=== PATIENT | male | born 1965 | race Caucasian/White ===

== ENCOUNTER 2020-09-06 19:58 | Emergency (ER) | payer SELFPAY ==
[~2020-09-06] VITALS: Ht 154.9 cm; Wt 83.9 kg
[2020-09-06 20:10] VITALS: BP 186/98
[2020-09-06] MEDS ORDERED: KETOROLAC 30 MG/ML VIAL IM STA (20:54)
--- NOTE | 2020-09-06 21:00 | NUR ---
PT WAS SEEN BY IN TENT
--- NOTE | 2020-09-06 21:16 | NUR ---
PT MEDICATED WITH TORADOL PER MD ORDER
--- NOTE | 2020-09-06 21:16 | NUR ---
NOVEL COVID SWAB COLLECTED AND WALKED TO LAB
[2020-09-06 21:22] VITALS: BP 186/98
--- NOTE | 2020-09-06 21:22 | NUR ---
Patient discharged with v/s stable. Written and verbal after care instructions given and explained. Patient verbalized understanding. Ambulatory with steady gait. All questions addressed prior to discharge. Advised to follow up with PMD.
--- NOTE | 2020-09-07 18:41 | NUR ---
Covid results received from lab. Results = POSITIVE. Hard copy requested from lab and placed in infection controls mailbox.
== END 2020-09-06 21:22 | disposition home or self-care (01) ==
LOC: MED 19:58
DX: U07.1 COVID-19 (principal); M79.10 Myalgia, unspecified site
CPT/HCPCS: 96372; 99283; J1885; U0003

== ENCOUNTER 2021-07-03 10:15 | Emergency (ER) | payer OTHER ==
[~2021-07-03] VITALS: Ht 160 cm; Wt 83.9 kg
[2021-07-03 10:32] VITALS: BP 162/101
--- NOTE | 2021-07-03 10:37 | NUR ---
PT AMBULATED TO BED 2
[2021-07-03] MEDS ORDERED: FAMOTIDINE 20 MG TAB PO ONE (10:45)
[2021-07-03] MEDS ORDERED: ALUMINUM HYD/MAG/SIMETHICONE 30 ML UDC PO ONE (10:45)
--- NOTE | 2021-07-03 10:45 | NUR ---
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 PT DENIES N/V, STATES DIARRHEA X2DAYS TODAY STOOL IS FORMED. DENIES FEVER/CHILLS. PT TOOK PEPTO AND IBUPROFEN 2 DAYS AGO WHICH PROVIDED MILD RELIEF. PT STATES BLACK STOOL, PT EDUCATED THIS IS A REACTION FROM [facility]. PMH: HTN NKA
--- NOTE | 2021-07-03 11:01 | NUR ---
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
--- NOTE | 2021-07-03 11:05 | NUR ---
PT AMBULATED TO RESTROOM FOR UA COLLECTION.
[2021-07-03 11:15] LABS: BASOPHILS # (AUTO) 0.1 K/uL (0.00-0.22); BASOPHILS % (AUTO) 0.6 % (0.0-2.0); EOSINOPHILS # (AUTO) 0.1 K/uL (0-0.4); EOSINOPHILS % (AUTO) 1.3 % (0.0-4.0); HEMATOCRIT 39.6 % (36-52); HEMOGLOBIN 13.2 g/dL (12.0-18.0); LYMPHOCYTES # (AUTO) 1.9 K/uL (2.0-11.5); LYMPHOCYTES % (AUTO) 20.9 % (20.5-51.1); MEAN CORPUSCULAR HEMOGLOBIN 27 pg (27-31); MEAN CORPUSCULAR HGB CONC 33 g/dL (33-37); MEAN CORPUSCULAR VOLUME 80.5 fL (80-94); MONOCYTES # (AUTO) 0.5 K/uL (0.8-1.0); MONOCYTES % (AUTO) 5.4 % (1.7-9.3); NEUTROPHILS # (AUTO) 6.5 K/uL (1.8-7.7); NEUTROPHILS % (AUTO) 71.8 % (42.2-75.2); PLATELET COUNT (AUTO) 280 K/uL (140-450); RED BLOOD CELL COUNT(AUTO) 4.92 MIL/uL (4.20-6.10); RED CELL DISTRIBUTION WIDTH 13.9 % (11.6-13.7)
--- NOTE | 2021-07-03 11:36 | NUR ---
DR. GOVEA AT PT BEDSIDE FOR FURTHER EVALUATION.
[2021-07-03 11:40] LABS: ALBUMIN 3.6 g/dL (3.4-5.0); ANION GAP 10.3 (8-16); CARBON DIOXIDE 26.5 mmol/L (21-32); CREATININE 0.8 mg/dL (0.6-1.3); POTASSIUM 3.8 mmol/L (3.5-5.1); TOTAL BILIRUBIN 0.5 mg/dL (0.0-1.0)
--- NOTE | 2021-07-03 12:20 | NUR ---
PT TAKEN TO CT SCAN.
--- NOTE | 2021-07-03 12:22 | NUR ---
PT RETURNED FROM CT SCAN
--- NOTE | 2021-07-03 12:33 | NUR ---
PT RESTING SUPINE, VISIBLE EQUAL RISE AND FALL OF CHEST, C/O 10/10 ABD PAIN. MD MADE AWARE.
[2021-07-03] MEDS ORDERED: MORPHINE SULFATE 4 MG/ML SYR IM ONE (12:45)
[2021-07-03] MEDS ORDERED: AZITHROMYCIN 250 MG TAB PO ONE (12:55)
--- NOTE | 2021-07-03 13:30 | NUR ---
COLLECTED DESTINI GUERRA, WALKED TO LAB.
[2021-07-03 13:35] VITALS: BP 140/84
--- NOTE | 2021-07-05 16:26 | NUR ---
Received covid + results from lab. Hard copy placed in infection control's office.
== END 2021-07-03 13:36 | disposition home or self-care (01) ==
LOC: MED 10:15
DX: R19.7 Diarrhea, unspecified (principal); Z20.822 Contact with and (suspected) exposure to COVID-19; R10.84 Generalized abdominal pain; R14.0 Abdominal distension (gaseous)
CPT/HCPCS: 36415; 74176; 80053; 81002; 83690; 85025; 96372; 99284; J2270; U0003